=== PATIENT | male | born 1965 | race Caucasian/White ===

== ENCOUNTER 2022-02-14 07:10 | Day surgery (SDC) | payer OTHER ==
[~2022-02-14] VITALS: Ht 172.7 cm; Wt 99.0 kg
[2022-02-14] VITALS (184 sets, daily range): BP systolic 81–170; BP diastolic 49–107
[2022-02-14 07:51] LABS: HEMOGLOBIN 15.4 g/dl (14.0-18.0); IMMATURE GRANULOCYTES 0.5 % (0.0-5.0); MEAN CELL VOLUME 89.1 fL CALC (80.0-100.0); MEAN CORPUSCULAR HGB 29.8 pG CALC (26.0-32.0); MEAN CORPUSCULAR HGB CONC 33.5 g/dL CAL (32.0-36.0); NEUT# 5.44 thou/uL (1.82-7.42); RED BLOOD COUNT 5.16 mill/uL (4.70-6.10); RED CELL DISTRI WIDTH 12.5 % (11.5-15.5)
[2022-02-14 07:57] LABS: ALBUMIN 4.5 g/dL (3.2-5.0); ALKALINE PHOSPHATASE 86 u/l (38-126); ANION GAP 11 (6-22 (CALC)); BILIRUBIN, TOTAL 0.7 mg/dL (0.0-1.4); BUN 20 mg/dL (9-20); BUN/CREATININE RATIO 21 (12-20 (CALC)); CARBON DIOXIDE 29 mmol/l (22-30); CHLORIDE 102 mmol/l (95-108); GFR FOR AFR.AMER. > 60 ML/MIN (>=60 (CALC)); GFR OTHER RACES > 60 ML/MIN (>=60 (CALC)); SGOT/AST 32 u/l (17-59); SODIUM 138 mmol/l (137-146); TOTAL PROTEIN 8.1 g/dL (6.3-8.2)
[2022-02-14] MEDS ORDERED: NALTREXONE50 MG PO (13:49)
[2022-02-14] MEDS ORDERED: CLONIDINE0.1 MG HM (13:50)
[2022-02-14] MEDS ORDERED: KLONOPIN2 MG PO (13:50)
[2022-02-15 03:47] VITALS: BP 136/95
[2022-02-15 05:11] LABS: ALBUMIN 3.9 g/dL (3.2-5.0); ALKALINE PHOSPHATASE 67 u/l (38-126); ANION GAP 10 (6-22 (CALC)); BILIRUBIN, TOTAL 0.6 mg/dL (0.0-1.4); BUN 15 mg/dL (9-20); BUN/CREATININE RATIO 18 (12-20 (CALC)); CARBON DIOXIDE 26 mmol/l (22-30); CHLORIDE 110 mmol/l (95-108); CREATININE 0.9 mg/dL (0.7-1.3); GFR FOR AFR.AMER. > 60 ML/MIN (>=60 (CALC)); GFR OTHER RACES > 60 ML/MIN (>=60 (CALC)); HEMATOCRIT 41.3 % (39.0-50.0); HEMOGLOBIN 14.1 g/dl (14.0-18.0); IMMATURE GRANULOCYTES 0.2 % (0.0-5.0); MAGNESIUM 2.5 mg/dL (1.6-2.3); MEAN CELL VOLUME 87.5 fL CALC (80.0-100.0); MEAN CORPUSCULAR HGB 29.9 pG CALC (26.0-32.0); MEAN CORPUSCULAR HGB CONC 34.1 g/dL CAL (32.0-36.0); NEUT# 10.26 thou/uL (1.82-7.42); POTASSIUM 4.2 mmol/l (3.5-5.1); RED BLOOD COUNT 4.72 mill/uL (4.70-6.10); RED CELL DISTRI WIDTH 12.1 % (11.5-15.5); SGOT/AST 36 u/l (17-59); SODIUM 142 mmol/l (137-146)
[2022-02-15 05:18] LABS: TOTAL PROTEIN 6.4 g/dL (6.3-8.2)
[2022-02-15 07:24] VITALS: BP 157/99
== END 2022-02-15 11:45 | disposition home or self-care (01) | DRG 897 ==
LOC: MS2 07:10 → ANR 07:10
PROVIDERS: ATTEND Anesthesiology
DX: F11.20 Opioid dependence, uncomplicated (principal)